=== PATIENT | male | born 1995 | race Caucasian/White ===

== ENCOUNTER 2017-03-14 21:06 | Emergency (ER) | payer OTHER ==
[~2017-03-14] VITALS: Ht 180.3 cm; Wt 86.2 kg
--- NOTE | 2017-03-14 21:06 | NUR ---
[facility] TO ER BED 3
[2017-03-14 21:13] VITALS: BP 162/75
--- NOTE | 2017-03-14 21:13 | NUR ---
21 Y/O BIB [place] [facility] FOR PREBOOK CLEARANCE S/P TC, PT ETOH.
[2017-03-14] MEDS ORDERED: ONDANSETRON 4 MG/2 ML VIAL IVP ONE (21:15)
[2017-03-14] MEDS ORDERED: NACL 0.9% 2,000 ML IV ONE (21:15)
--- NOTE | 2017-03-14 21:50 | NUR ---
PT TAKEN FOR CT AND X-RAY VIA Biomode - Biomolecular Determination. ACCOMPANIED BY DAMIEN PINA.
--- NOTE | 2017-03-14 22:28 | NUR ---
PT BACK FROM CT, ON MONITOR, O2 SAT 98 IN O2 SAT 2LT. PD AT BEDSIDE.
--- NOTE | 2017-03-14 23:23 | NUR ---
Note omid in EDM - 03/14/17 at 2337 by [email or web address] Pelvic exam performed by DR. CRAMER with ME at bedside for entire examination. Patient tolerated procedure WELL. Patient assisted to position of comfort after examination.
[2017-03-14 23:40] VITALS: BP 100/72
--- NOTE | 2017-03-14 23:43 | NUR ---
Patient discharged with v/s stable. Written and verbal after care instructions given and explained. Patient alert, oriented and verbalized understanding of instructions. Police with in custody. All questions addressed prior to discharge. ID band removed. Patient advised to follow up with PMD.NO Rx given. Patient educated on indication of medication including possible reaction and side effects. Opportunity to ask questions provided and answered.
== END 2017-03-14 23:40 ==
LOC: MED 21:06
DX: Z02.89 Encounter for other administrative examinations (principal); F10.129 Alcohol abuse with intoxication, unspecified; J45.909 Unspecified asthma, uncomplicated; Y92.488 Other paved roadways as the place of occurrence of the external cause; V49.9XXA Car occupant (driver) (passenger) injured in unspecified traffic accident, initial encounter; Y93.89 Activity, other specified; Y99.8 Other external cause status
CPT/HCPCS: 70450; 71010; 72125; 74176; 96361; 96374; 99284; J2405; J7030; Q0092

== ENCOUNTER 2021-01-26 18:30 | Emergency (ER) | payer SELFPAY ==
[~2021-01-26] VITALS: Ht 177.8 cm; Wt 113.4 kg
[2021-01-26 18:36] VITALS: BP 144/80
--- NOTE | 2021-01-26 18:42 | NUR ---
PT AMBULATED TO BED
[2021-01-26] MEDS ORDERED: ACETAMINOPHEN EXTRA STRENGTH 500 MG TAB PO ONE (18:55)
[2021-01-26] MEDS ORDERED: ALUMINUM HYD/MAG/SIMETHICONE 30 ML UDC PO ONE (19:00)
[2021-01-26] MEDS ORDERED: FAMOTIDINE 20 MG TAB PO ONE (19:00)
--- NOTE | 2021-01-26 19:23 | NUR ---
URINE COLLECTED AND HANDED OVER TO IMPREGNATOR
[2021-01-26 19:28] LABS: BASOPHILS # (AUTO) 0.1 K/uL (0.00-0.22); BASOPHILS % (AUTO) 0.7 % (0.0-2.0); EOSINOPHILS # (AUTO) 0.4 K/uL (0-0.4); EOSINOPHILS % (AUTO) 5.1 % (0.0-4.0); HEMATOCRIT 45.2 % (36-52); HEMOGLOBIN 15.5 g/dL (12.0-18.0); LYMPHOCYTES # (AUTO) 1.9 K/uL (2.0-11.5); LYMPHOCYTES % (AUTO) 25.1 % (20.5-51.1); MEAN CORPUSCULAR HEMOGLOBIN 30 pg (27-31); MEAN CORPUSCULAR HGB CONC 34 g/dL (33-37); MEAN CORPUSCULAR VOLUME 87.8 fL (80-94); MONOCYTES # (AUTO) 0.6 K/uL (0.8-1.0); MONOCYTES % (AUTO) 8.2 % (1.7-9.3); NEUTROPHILS # (AUTO) 4.7 K/uL (1.8-7.7); NEUTROPHILS % (AUTO) 60.9 % (42.2-75.2); PLATELET COUNT (AUTO) 134 K/uL (140-450); RED BLOOD CELL COUNT(AUTO) 5.15 MIL/uL (4.20-6.10); RED CELL DISTRIBUTION WIDTH 13.5 % (11.6-13.7); WHITE BLOOD COUNT (AUTO) 7.7 K/uL (4.8-10.8)
[2021-01-26 19:40] LABS: ALBUMIN 3.9 g/dL (3.4-5.0); ANION GAP 15.3 (8-16); CARBON DIOXIDE 25.3 mmol/L (21-32); CREATININE 1.1 mg/dL (0.6-1.3); POTASSIUM 3.6 mmol/L (3.5-5.1); TOTAL BILIRUBIN 0.5 mg/dL (0.0-1.0)
[2021-01-26 20:50] VITALS: BP 138/78
--- NOTE | 2021-01-26 20:50 | NUR ---
Patient discharged with v/s stable. Written and verbal after care instructions given and explained. Patient verbalized understanding. Ambulatory with steady gait. All questions addressed prior to discharge. Advised to follow up with PMD.
== END 2021-01-26 20:50 | disposition home or self-care (01) ==
LOC: MED 18:30
DX: R10.12 Left upper quadrant pain (principal); D69.6 Thrombocytopenia, unspecified; J45.909 Unspecified asthma, uncomplicated; Z87.891 Personal history of nicotine dependence
CPT/HCPCS: 36415; 80053; 83690; 85025; 99283

== ENCOUNTER 2022-01-11 18:52 | Emergency (ER) | payer OTHER ==
[~2022-01-11] VITALS: Ht 180.3 cm; Wt 117.9 kg
[2022-01-11 19:15] VITALS: BP 122/85
--- NOTE | 2022-01-11 20:29 | NUR ---
PT AMBULATED TO BED #8
--- NOTE | 2022-01-11 20:35 | NUR ---
DR. NOLASCO AT BEDSIDE FOR EVALUATION
--- NOTE | 2022-01-11 20:52 | NUR ---
26 Y O MALE BIB SELF FOR LEFT ARM NUMBNESS AND TINGLES. X 1 TODAY PT WAS DRINKING AND MAY HAVE SLEPT ON IT. PT STATES 9/10 PAIN. RADIATES FROM ELBOW DOWN. PT DENIES HEADACHE/ N/V/D/CHEST PAIN. NKA PMh: ASTHMA SOCIAL: ALCHOL X 3 DAYS A WEEK. DENIES DRUG USE
[2022-01-11 21:15] VITALS: BP 132/60
--- NOTE | 2022-01-12 01:23 | NUR ---
The patient's care was reviewed and supervised by Mckenna Murillo RN.
== END 2022-01-11 21:15 | disposition home or self-care (01) ==
LOC: MED 18:52
DX: G62.9 Polyneuropathy, unspecified (principal); R20.2 Paresthesia of skin; J45.909 Unspecified asthma, uncomplicated
CPT/HCPCS: 99281

== ENCOUNTER 2022-01-14 14:52 | Emergency (ER) | payer OTHER ==
[~2022-01-14] VITALS: Ht 177.8 cm; Wt 117.1 kg
[2022-01-14 15:05] VITALS: BP 145/91
--- NOTE | 2022-01-14 16:20 | NUR ---
ANGELICA Whitehead is evaluating pt outside ER lobby
--- NOTE | 2022-01-14 16:24 | NUR ---
26 y/o M c/o LUE pain. Seen here on 01/11/22 without relief to symptoms. Pt reports left elbow pain radiating to left hand, 01/21, pins/needles/numbness/constant pain. Good ROM of left elbow. Patient states pressure that worsens at night and during sleep. Tylenol today without relief. PMH/Sx/Meds: Denies NKDA
[2022-01-14] MEDS ORDERED: KETOROLAC 30 MG/ML VIAL IM ONE (16:25)
[2022-01-14 16:45] LABS: BASOPHILS # (AUTO) 0.1 K/uL (0.00-0.22); BASOPHILS % (AUTO) 0.8 % (0.0-2.0); EOSINOPHILS # (AUTO) 0.3 K/uL (0-0.4); EOSINOPHILS % (AUTO) 4.7 % (0.0-4.0); HEMATOCRIT 47.8 % (36-52); LYMPHOCYTES # (AUTO) 2.3 K/uL (2.0-11.5); LYMPHOCYTES % (AUTO) 37.1 % (20.5-51.1); MEAN CORPUSCULAR HEMOGLOBIN 29 pg (27-31); MEAN CORPUSCULAR HGB CONC 34 g/dL (33-37); MEAN CORPUSCULAR VOLUME 85.8 fL (80-94); MONOCYTES # (AUTO) 0.5 K/uL (0.8-1.0); MONOCYTES % (AUTO) 7.8 % (1.7-9.3); NEUTROPHILS # (AUTO) 3.1 K/uL (1.8-7.7); NEUTROPHILS % (AUTO) 49.6 % (42.2-75.2); PLATELET COUNT (AUTO) 154 K/uL (140-450); RED BLOOD CELL COUNT(AUTO) 5.58 MIL/uL (4.20-6.10); RED CELL DISTRIBUTION WIDTH 13.6 % (11.6-13.7); WHITE BLOOD COUNT (AUTO) 6.2 K/uL (4.8-10.8)
[2022-01-14 17:04] LABS: ALBUMIN 4.1 g/dL (3.4-5.0); ANION GAP 12.6 (8-16); CARBON DIOXIDE 27.6 mmol/L (21-32); CREATININE 1.2 mg/dL (0.6-1.3); POTASSIUM 4.2 mmol/L (3.5-5.1); TOTAL BILIRUBIN 0.6 mg/dL (0.0-1.0)
[2022-01-14] MEDS ORDERED: NAPR-1704 PO (17:17)
--- NOTE | 2022-01-14 17:37 | NUR ---
PT PLACED IN VELCRO LEFT THUMB SPICA SPLINT CMS WNL BEFORE AND AFTER.
[2022-01-14 17:55] VITALS: BP 144/86
--- NOTE | 2022-01-14 17:55 | NUR ---
Patient discharged with v/s stable. Written and verbal after care instructions ABOUT ALANINE AMINOTRANSFERASE TEST, CARPAL TUNNEL SYNDROME given and explained. Patient alert, oriented and verbalized understanding of instructions. Ambulatory with steady gait. All questions addressed prior to discharge. ID band removed. Patient advised to follow up with PMD. Rx of NAPROSYN given. Patient educated on indication of medication including possible reaction and side effects. Opportunity to ask questions provided and answered.
== END 2022-01-14 17:55 | disposition home or self-care (01) ==
LOC: MED 14:52
DX: G56.02 Carpal tunnel syndrome, left upper limb (principal); H44.22 Degenerative myopia, left eye; J45.909 Unspecified asthma, uncomplicated
CPT/HCPCS: 29515; 36415; 80053; 85025; 96372; 99283; J1885